=== PATIENT | male | born 1990 | race Native Hawaiian/Other Pacific Islander ===

== ENCOUNTER 2016-11-12 23:12 | Emergency (ER) | payer SELFPAY ==
[2016-11-12] MEDS ORDERED: methylPREDNISolone SUCCINATE 125 MG/2 ML VIAL IVP STA (23:32)
[2016-11-12] MEDS ORDERED: FAMOTIDINE 20 MG/2 ML VIAL IVP STA (23:33)
[2016-11-12] MEDS ORDERED: EPINEPHrine 1 MG/ML AMP IM STA (23:34)
[2016-11-12] MEDS ORDERED: EPINEPHrine 1 MG/ML AMP ONE (23:37)
[2016-11-12] MEDS ORDERED: methylPREDNISolone SUCCINATE 125 MG/2 ML VIAL IVP ONE (23:37)
[2016-11-12] MEDS ORDERED: FAMOTIDINE 20 MG/2 ML VIAL ONE (23:38)
== END 2016-11-13 02:00 | disposition home or self-care (01) ==
DX: T78.40XA Allergy, unspecified, initial encounter (principal)